=== PATIENT | male | born 1985 | race Hispanic/Latino ===

== ENCOUNTER 2020-09-26 15:10 | Emergency (ER) | payer BC ==
[~2020-09-26] VITALS: Ht 174 cm; Wt 90.0 kg
[~2020-09-26 15:10] MED LIST: CICLOPIROX NAIL L8 % EX; CLOTRIMAZOLE13 EX
[2020-09-26 18:10] VITALS: BP 126/75
== END 2020-09-26 18:10 | disposition home or self-care (01) | DRG 179 ==
LOC: ED 15:10
DX: U07.1 COVID-19 (principal)

== ENCOUNTER 2024-03-26 17:54 | Emergency (ER) | payer OTHER ==
[~2024-03-26] VITALS: Ht 174 cm; Wt 104.0 kg
[2024-03-26] MEDS ORDERED: LIDOcaine HCl 1% (Local Anesth.) 20 ML VIAL STI STA (17:59)
[2024-03-26] MEDS ORDERED: Diph, Acellular Pertussis, Tet 0.5 ML/VIAL (Tdap) SDV IM ONE (18:00)
[2024-03-26] MEDS ORDERED: POVIDONE IODINE 0.5 OZ/BTL TOP ONE (18:00)
[2024-03-26] MEDS ORDERED: STERILE WATER 10 ML/VIAL SDV IM ONE (18:00)
[2024-03-26] MEDS ORDERED: ceFAZolin 1 GM/VIAL SDV IM ONE (18:00)
[2024-03-26 18:04] VITALS: BP 133/91
[2024-03-26] MEDS ORDERED: CEPHALEXIN500 M1 PO (18:36)
[2024-03-26 18:46] VITALS: BP 132/90
== END 2024-03-26 19:04 | disposition home or self-care (01) | DRG 605 ==
LOC: ED 17:54
PROC: 0HQGXZZ Repair Left Hand Skin, External Approach (ICD-10-PCS; principal; 2024-03-26)
DX: S61.012A Laceration without foreign body of left thumb without damage to nail, initial encounter (principal); W27.0XXA Contact with workbench tool, initial encounter